=== PATIENT | female | born 1990 | race Caucasian/White ===

== ENCOUNTER 2016-11-20 02:01 | Emergency (ER) | payer OTHER ==
[~2016-11-20] VITALS: Ht 167.6 cm; Wt 91.5 kg
[~2016-11-20 02:01] MED LIST: ACETAMINOPHEN500 MG PO; ADDERALL10 MG; ADDERALL20 MG PO; AMOXICILLIN875 MG PO; CLINDAMYCIN HC300 MG PO; ENDOCET 5-3251 EACH PO; FLEXERIL10 MG PO; FLINTSTONES CO1 EACH PO; IBUPROFEN600 MG PO; IBUPROFEN800 MG PO; INDOCIN25 MG PO; MOTRIN600 MG PO; MOTRIN800 MG PO; Motrin PO; NAPROSYN500 MG PO; NOHOMEMEDS; OXYCODONE HCL10 MG PO; OXYCODONE-ACET1 EACH; PERCOCET 10/1 TABLET PO; PERCOCET 5/31 TABLET PO; TESSALON PERLE100 MG PO; TESSALON200 MG PO; TRAMADOL HCL50 MG PO; VALIUM5 MG PO; XANAX1 MG PO; ZITHROMAX Z-PA250 MG PO; ZOFRAN4 MG PO; ZYRTEC10 M2 PO
[2016-11-20 02:03] VITALS: BP 116/76
== END 2016-11-20 03:36 | disposition left against medical advice (07) ==
LOC: EME 02:01
DX: K59.00 Constipation, unspecified (principal); R10.30 Lower abdominal pain, unspecified; F17.200 Nicotine dependence, unspecified, uncomplicated
CPT/HCPCS: 99281; 99283

== ENCOUNTER 2017-02-15 18:58 | Emergency (ER) | payer OTHER ==
[~2017-02-15] VITALS: Ht 160 cm; Wt 89.4 kg
[2017-02-15 22:31] VITALS: BP 103/83
== END 2017-02-15 22:33 | disposition home or self-care (01) ==
LOC: EME 18:58
DX: S02.2XXA Fracture of nasal bones, initial encounter for closed fracture (principal); Y04.8XXA Assault by other bodily force, initial encounter; Y07.59 Other non-family member, perpetrator of maltreatment and neglect; F17.200 Nicotine dependence, unspecified, uncomplicated
CPT/HCPCS: 70450; 70486; 84702; 99281; 99283